=== PATIENT | male | born 1960 | race Two or more races ===

== ENCOUNTER 2017-04-05 16:58 | Emergency (ER) | payer BC, MEDICAID ==
[~2017-04-05] VITALS: Ht 177.8 cm; Wt 90.7 kg
[~2017-04-05 16:58] MED LIST: ASPI-241 PO; LOSA25TA13 PO; OMEP40CA37 PO
--- NOTE | 2017-04-05 16:58 | NUR ---
PRESENTS SELF TO ED DUE TO EPIGASTRIC PAIN X 2 DAYS, RADIATING TO THE BACK. PATIENT IS AAO3. APPEARS IN NO APPARENT DISTRESS, RR EVEN AND UNLABORED. SKIN IS WARM TO TOUCH AND NON DIAPHORETIC. PATIENT IS AFEBRILE. VSS. DENIES AND VOMITTING. AWAITING FOR MD HARRIS
--- NOTE | 2017-04-05 17:10 | NUR ---
MD URIBE AT FOR EVALUATION
[2017-04-05] MEDS ORDERED: ONDANSETRON HCL/PF - ER 4 MG/2 ML VIAL IV ONE (17:30)
[2017-04-05] MEDS ORDERED: MORPHINE SULFATE INJ 2 MG/ML DISP.SYRIN IV ONE (17:30)
[2017-04-05] MEDS ORDERED: IV NS 0.9% 1,000 ML BAG IV ONE (17:30)
[2017-04-05] MEDS ORDERED: PANTOPRAZOLE 40 MG VIAL IV ONE (17:30)
[2017-04-05 17:36] LABS: BASOPHILS # (AUTO) 0.1 /CMM (0.0-0.2); BASOPHILS % (AUTO) 1.1 % (0.0-2.0); EOSINOPHILS % (AUTO) 0.6 % (0.0-6.0); HEMATOCRIT 43 % (39-51); HEMOGLOBIN 14.2 g/dL (13.5-17.5); LYMPHOCYTES # (AUTO) 1.4 /CMM (0.8-4.8); MEAN CORPUSCULAR HEMOGLOBIN 28 PG (26.0-33.0); MEAN CORPUSCULAR HGB CONC 33 g/dl (31.0-36.0); MEAN CORPUSCULAR VOLUME 84 fL (80-96); MONOCYTES # (AUTO) 0.3 /CMM (0.1-1.30); MONOCYTES % (AUTO) 3.6 % (2.0-12.0); NEUTROPHILS # (AUTO) 6.3 /CMM (1.8-8.9); NEUTROPHILS % (AUTO) 77.7 % (43.0-81.0); PLATELET COUNT (AUTO) 273 /CMM (150-450); RDW COEFFICIENT OF VARIATION 12.1 (11.5-15.0); RED BLOOD CELL COUNT(AUTO) 5.08 MIL/uL (4.5-6.0); WHITE BLOOD COUNT (AUTO) 8.1 K/uL (4.3-11.0)
[2017-04-05] MEDS ORDERED: IV NS 0.9% 1,000 ML ONE (17:36)
[2017-04-05] MEDS ORDERED: MORPHINE SULFATE INJ 4 MG/ML DISP.SYRIN ONE (17:36)
[2017-04-05] MEDS ORDERED: ONDANSETRON HCL/PF 4 MG/2 ML VIAL ONE (17:36)
[2017-04-05] MEDS ORDERED: IV SET PRIMARY PUMP SET 1 EA INFUS.SET MC ONE (17:36)
[2017-04-05] MEDS ORDERED: PANTOPRAZOLE 40 MG VIAL ONE (17:36)
[2017-04-05 17:45] LABS: CALCIUM, SERUM 9.1 mg/dL (8.5-10.1); CREATININE 1.1 mg/dL (0.6-1.3); POTASSIUM 4.7 mmol/L (3.5-5.1)
--- NOTE | 2017-04-05 17:48 | NUR ---
MEDICATED PATIENT ORDERED
[2017-04-05 17:52] LABS: ALBUMIN 4.2 g/dL (3.4-5.0); BILIRUBIN,DIRECT 0.1 mg/dL (0.0-0.2); BILIRUBIN,TOTAL 0.4 mg/dL (0.2-1.0); TOTAL PROTEIN, SERUM 8.1 g/dL (6.4-8.2)
--- NOTE | 2017-04-05 17:52 | NUR ---
JAXSON MESSI AT
--- NOTE | 2017-04-05 19:08 | NUR ---
REPORT GIVEN TO NURSE MARTHA
--- NOTE | 2017-04-05 19:08 | NUR ---
Patient is resting comfortably in bed with eyes closed. Easily aroused. VSS
--- NOTE | 2017-04-05 19:20 | NUR ---
IV removed. Catheter intact and site benign. Pressure and 4x4 applied to site. No bleeding noted. Patient discharged to home in stable condition. Written and verbal after care instructions given. Patient verbalizes understanding of instructions. Patient is ambulatory with steady gait, accompanied by family.
[2017-04-05 19:21] VITALS: BP 130/80
== END 2017-04-05 19:22 | disposition home or self-care (01) ==
LOC: ER 17:03
DX: R10.13 Epigastric pain (principal); K76.0 Fatty (change of) liver, not elsewhere classified
CPT/HCPCS: 36415; 76705; 80048; 80076; 83690; 85025; 93005; 96361; 96374; 96375; 99285; A4606; C9113; J2270; J2405; J7030; Z7610